=== PATIENT | male | born 1990 | race African-American/Black ===

== ENCOUNTER 2019-01-16 04:44 | Emergency (ER) | payer OTHER ==
[~2019-01-16] VITALS: Ht 180.3 cm; Wt 95.7 kg
[~2019-01-16 04:44] MED LIST: ATIVAN1 MG PO; BENZTROPINE MESY2 MG PO; DILANTIN100 MG PO; KEPPRA 500 MG500 M2 PO; NOHOMEMEDICATIONS; NORCO 5-325 TA1 EACH PO; RISPERDAL 1 MG T1 MG PO; SENNA S TABLET1 EACH PO; TRAZODONE HCL50 MG PO
[2019-01-16 04:55] VITALS: BP 136/92
[2019-01-16] MEDS ORDERED: ZYPREXA ZYDIS15 MG PO (05:01)
[2019-01-16] MEDS ORDERED: MEDROLDOSEPACK PO (05:25)
[2019-01-16] MEDS ORDERED: BENADRYL25 MG PO (05:25)
== END 2019-01-16 05:35 | disposition home or self-care (01) ==
LOC: ER 04:44
DX: R21 Rash and other nonspecific skin eruption (principal); F20.9 Schizophrenia, unspecified

== ENCOUNTER 2020-08-17 07:13 | Emergency (ER) | payer OTHER ==
[~2020-08-17] VITALS: Ht 180.3 cm; Wt 96.2 kg
[~2020-08-17 07:13] MED LIST changes: +BENADRYL25 MG PO; +MEDROLDOSEPACK PO; +ZYPREXA ZYDIS15 MG PO
[2020-08-17 08:30] LABS: ABSOLUTE NEUTROPHILS 4.8 thou/uL (1.4-8.2); BASOPHILS 0.8 % (0.0-2.0); EOSINOPHILS 1.2 % (0.0-3.0); HEMATOCRIT 42.2 % (42.0-52.0); HEMOGLOBIN 14.5 gm/dL (14.0-18.0); LYMPHOCYTES 26.8 % (24.0-44.0); MCH 30.2 pg (26.0-34.0); MCHC 34.4 g/dL (28.0-37.0); MONOCYTES 5.4 % (1.0-8.0); PLATELET COUNT 214 thou/uL (150-400); POLYS 65.8 % (36.0-66.0); RBC 4.79 mil/uL (4.50-6.00); RDW 13.4 % (10.5-14.5); WBC 7.4 thou/uL (4.0-11.0)
[2020-08-17 08:32] LABS: CALCIUM 8.9 mg/dL (8.5-10.1)
[2020-08-17 08:38] LABS: ALBUMIN 4.1 g/dL (3.4-5.0); TOTAL BILIRUBIN 0.6 mg/dL (0.2-1.0); TOTAL PROTEIN 7.7 g/dL (6.4-8.2)
[2020-08-17 09:58] LABS: URINE BILIRUBIN NEGATIVE (Negative); URINE BLOOD TRACE (Negative); URINE CLARITY CLEAR; URINE COLOR YELLOW; URINE GLUCOSE-RANDOM* NEGATIVE (Negative); URINE KETONES NEGATIVE (Negative); URINE LEUKOCYTES-REFLEX NEGATIVE (Negative); URINE NITRITE-REFLEX NEGATIVE (Negative); URINE PROTEIN (DIPSTICK) NEGATIVE (Negative); URINE SPECIFIC GRAVITY <= 1.005 (1.005-1.035); URINE UROBILINOGEN 0.2 E.U./dl (0.2-1.0)
[2020-08-17 11:51] VITALS: BP 113/68
== END 2020-08-17 11:55 | disposition home or self-care (01) ==
LOC: ER 07:13
PROVIDERS: Emergency Medicine
DX: R10.32 Left lower quadrant pain (principal); R10.31 Right lower quadrant pain; Z79.899 Other long term (current) drug therapy